=== PATIENT | female | born 1985 | race Caucasian/White ===

== ENCOUNTER 2016-12-26 09:55 | Day surgery (SDC) | payer OTHER, SELFPAY ==
[~2016-12-26 09:55] MED LIST: ANTIBIOTIC PO; EXCEDRIN MIGRA1 EAC2 PO; IBUPROFEN800 MG PO; PRENATAL1 EACH PO; TYLENOL #31 TA1 PO; VITAMIN D 22000 UNIT PO
[2016-12-26 11:06] LABS: HCT-HEMATOCRIT 37.8 % (34.0-49.0); HGB-HEMOGLOBIN 12.3 gm/dl (12.0-15.5); MCV (MEAN CELL VOLUME) 85.7 fl (82.0-96.0); RED CELL DISTRIBUTION WIDTH 14.1 % (12.4-16.4)
== END 2016-12-26 14:45 ==
LOC: SRG 09:55 → SHSB 09:58 → ORW 11:39 → PACU 12:26
PROVIDERS: Obstetrics & Gynecology
PROC: 0U9MXZZ Drainage of Vulva, External Approach (ICD-10-PCS; principal; 2016-12-26)
DX: N75.0 Cyst of Bartholin's gland (principal); F41.9 Anxiety disorder, unspecified; F32.9 Major depressive disorder, single episode, unspecified; Z87.891 Personal history of nicotine dependence; E66.9 Obesity, unspecified; Z68.23 Body mass index [BMI] 23.0-23.9, adult; Z98.890 Other specified postprocedural states